=== PATIENT | male | born 1955 | race African-American/Black ===

== ENCOUNTER 2017-01-07 15:59 | Emergency (ER) | payer OTHER ==
[~2017-01-07] VITALS: Ht 172.7 cm; Wt 49.9 kg
[~2017-01-07 15:59] MED LIST: ACCUPRIL40 MG PO; ADVAIR 250/501 DISK IH; ADVAIR HFA120 INHALA IH; ALKA-SELTZER P1 EAC2 PO; AMLODIPINE BESY10 MG PO; ANUSOL HC,ANUCO25 MG PR; APRESOLINE25 MG PO; ASCORBIC ACID100 MG PO; AZO95 MG PO; BACTRIM,SEPT1 TABLE1 PO; BACTRIM,SEPT1 TABLET PO; CIPRO500 MG PO; CIPROFLOXACIN250 MG PO; CIPROFLOXACIN500 M1 PO; CLONIDINE HCL0.1 MG PO; COLACE100 MG PO; COMPAZINE10 MG PO; CYANOCOBALAM1000 MCG PO; Colace PO; DETROL LA4 MG PO; DIGOXIN250 MCG PO; DITROPAN5 MG PO; DOCUSATE SODIU100 MG PO; DOXYCYCLINE HY100 M3 PO; ENDOCET 5-3251 EACH PO; ESCITALOPRAM OX10 MG PO; FAMOTIDINE20 MG PO; FEOSOL325 MG PO; FLEXERIL10 MG PO; FLOMAX0.4 MG PO; FOLIC ACID1 MG PO; KEFLEX500 MG PO; LEVAQUIN250 MG PO; LEVAQUIN750 MG PO; LEVOFLOXACIN750 MG PO; LEVOTHYROXINE100 MCG PO; LEVOTHYROXINE125 MCG PO; LOMOTIL TABLET1 EACH PO; LOPRESSOR50 MG PO; LORTAB 5-325 M1 EACH PO; MEN'S MULTI-VI1 EACH PO; MULTI-VITAMIN1 EAC4 PO; MYLICON,MYLANTA80 MG PO; NAPROSYN500 MG PO; NORCO 5/3251 TABLET PO; NORVASC10 MG PO; PERCOCET 10/1 TABLET PO; PERCOCET 5/31 TABLET PO; POLYETHYLENE GL17 GM PO; PREDNISONE10 MG PO; PREDNISONE50 MG PO; PYRIDIUM100 MG PO; QUINAPRIL HCL40 MG PO; REMERON15 M2 PO; SENOKOT S,PE1 TABLET PO; SYNTHROID200 MCG PO; TAMSULOSIN HCL0.4 MG PO; TOLTERODINE TART4 MG PO; TYLENOL REGULA325 MG PO; VANCOMYCIN1 GM/250 M IV; VENTOLIN HFA18 GM IH; VITAMIN B12 100MCG PO; ZESTRIL40 MG PO; ZITHROMAX250 MG PO; ZOFRAN4 MG PO
[2017-01-07 16:29] LABS: EOSINOPHIL (%) 2.6 % (0-5); EOSINOPHIL COUNT 0.1 K/uL (0-0.3); HEMATOCRIT 33.3 % (38.0-50.0); IMMATURE GRANULOCYTE (%) 0.3 % (0.0-0.7); INSTRUMENT ABS NEUTROPHIL CT 1.9 K/uL; LYMPHOCYTE COUNT 1.1 K/uL (1.0-2.8); MCH 31.7 PG (29.0-34.0); MCHC 31.8 G/DL (30.0-36.0); MCV 99.7 FL (86-99); MEAN PLAT.VOLUME 9.1 uM^3 (9.0-12.4); MONOCYTE (%) 12.5 % (3-12); MONOCYTE COUNT 0.4 K/uL (0-0.8); NEUTROPHIL (%) 53.9 % (45-76); NEUTROPHIL COUNT 1.9 K/uL (1.8-6.4); PLATELET COUNT 193 K/uL (156-360); RBC DIS.WIDTH-CV 14.8 % (11.8-14.6); RBC DIS.WIDTH-SD 53.7 % (39-53); RED BLOOD COUNT 3.34 M/uL (4.00-5.50); WHITE BLOOD COUNT 3.5 K/uL (4.1-10.2)
[2017-01-07 16:43] LABS: CHLORIDE 106 mEq/L (99-109); POTASSIUM 4.4 mEq/L (3.7-5.4); SODIUM 140 mEq/L (136-147)
[2017-01-07 16:45] LABS: GLUCOSE 107 mg/dL (70-99)
[2017-01-07 16:47] LABS: ANION GAP 10 MEQ/L (2-14); TOTAL BILIRUBIN 0.4 mg/dL (0.0-1.0)
[2017-01-07 16:49] LABS: ALKALINE PHOSPHATASE 85 IU/L (3-129); GFR ESTIMATE (CALCULATED) > 59 mL/min/
[2017-01-07 16:50] LABS: UREA NITROGEN (BUN) 21 mg/dL (9-23)
[2017-01-07 16:52] LABS: LIPASE 19 U/L (1.0-51.0)
[2017-01-07 17:23] LABS: COLOR RED ((YELLOW)); GLUCOSE (STRIP) NEGATIVE; LEUKOCYTES LARGE; NITRITE POSITIVE; PH, URINE 8.5 (5-8); PROTEIN (STRIP) 100
[2017-01-07 17:24] LABS: ADD MIUA? YES; BILIRUBIN SMALL; BLOOD LARGE; KETONES NEGATIVE; UROBILINOGEN 0.2 MG/DL (0.2-1.0)
[2017-01-07 17:36] LABS: BACTERIA 4+ /HPF; EPITHELIAL CELLS NONE SEEN /HPF; MUCUS NONE SEEN /LPF; RED BLOOD CELLS TNTC /HPF (0-5); UCUL ADDED? YES; WHITE BLOOD CELLS TNTC /HPF (0-5)
[2017-01-07] MEDS ORDERED: TRAMADOL HCL50 MG PO (20:12)
[2017-01-07] MEDS ORDERED: KEFLEX500 MG PO (20:12)
[2017-01-07 21:26] VITALS: BP 152/76
== END 2017-01-07 21:27 | disposition home or self-care (01) ==
LOC: EME 15:59
PROVIDERS: Emergency Medicine
DX: N39.0 Urinary tract infection, site not specified (principal); N32.0 Bladder-neck obstruction; I10 Essential (primary) hypertension; N21.0 Calculus in bladder; N13.30 Unspecified hydronephrosis; R00.0 Tachycardia, unspecified; J45.909 Unspecified asthma, uncomplicated; F17.200 Nicotine dependence, unspecified, uncomplicated
CPT/HCPCS: 74176; 80053; 81003; 83605; 83690; 85025; 87086 GA; 99281; 99284; J0696; J7030; J7040; J7050

== ENCOUNTER → 2017-01-08 | Outpatient (CLI) | payer OTHER ==
[~2017-01-08] VITALS: Ht 172.7 cm; Wt 49.9 kg
[~2017-01-08] MED LIST changes: +TRAMADOL HCL50 MG PO
[2017-01-08 15:53] VITALS: BP 115/60
== END | disposition home or self-care (01) ==
LOC: IVINF 15:00
DX: T83.511A Infection and inflammatory reaction due to indwelling urethral catheter, initial encounter (principal)
CPT/HCPCS: 96365; J0696; J7050

== ENCOUNTER → 2017-02-24 | Day surgery (SDC) | payer OTHER ==
[~2017-02-24] VITALS: Ht 175.3 cm; Wt 47.2 kg
[~2017-02-24] MED LIST changes: +DULERA 100 MCG/13 GM IH; +FIRMAGON80 MG SC; +LEVOTHYROXINE200 MC1 PO; +LISINOPRIL40 MG PO; +LUPRON DEPOT45 MG IM; +MIRTAZAPINE15 MG PO; +VITAMIN C500 M1 PO
[2017-02-24 09:39] LABS: METH RESISTANT S AUREUS PCR ND (NEGATIVE)
== END | disposition home or self-care (01) ==
LOC: SDC
PROVIDERS: Urology
PROC: 0TJ Urinary System, Inspection (ICD-10-PCS; principal; 2017-02-24)
DX: N21.0 Calculus in bladder (principal); Z53.29 Procedure and treatment not carried out because of patient's decision for other reasons; Z85.46 Personal history of malignant neoplasm of prostate; N40.0 Benign prostatic hyperplasia without lower urinary tract symptoms
CPT/HCPCS: 87086; 87641; 93005; J0690; J1100; J1580; J2250; J2405; J3010

== ENCOUNTER 2017-05-29 06:33 | Emergency (ER) | payer OTHER ==
[~2017-05-29] VITALS: Ht 172.7 cm; Wt 48.3 kg
[2017-05-29 07:15] LABS: HEMATOCRIT 32.7 % (38.0-50.0); MCH 33.1 PG (29.0-34.0); MCV 100.3 FL (86-99); MEAN PLAT.VOLUME 9.8 uM^3 (9.0-12.4); PLATELET COUNT 129 K/uL (156-360); RBC DIS.WIDTH-CV 14.7 % (11.8-14.6); RBC DIS.WIDTH-SD 54.5 % (39-53); RED BLOOD COUNT 3.26 M/uL (4.00-5.50); WHITE BLOOD COUNT 3.2 K/uL (4.1-10.2)
[2017-05-29 07:45] LABS: ALKALINE PHOSPHATASE 68 IU/L (3-129); ANION GAP 9 MEQ/L (2-14); CHLORIDE 110 MEQ/L (99-109); GFR ESTIMATE (CALCULATED) > 59 mL/min/; GLUCOSE 120 mg/dL (70-99); POTASSIUM 3.5 MEQ/L (3.7-5.4); SAMPLE HEMOLYSIS CHECK 0; SAMPLE ICTERIC CHECK 0; SAMPLE LIPEMIA CHECK 0; SODIUM 141 MEQ/L (136-147); TOTAL BILIRUBIN 0.6 MG/DL (0.0-1.0); UREA NITROGEN (BUN) 25 mg/dL (9-23)
[2017-05-29 11:25] LABS: ADD MIUA? YES; BILIRUBIN MODERATE; BLOOD LARGE; COLOR RED ((YELLOW)); GLUCOSE (STRIP) NEGATIVE; KETONES NEGATIVE; LEUKOCYTES MODERATE; NITRITE NEGATIVE; PH, URINE 6.5 (5-8); PROTEIN (STRIP) 300; UROBILINOGEN 0.2 MG/DL (0.2-1.0)
[2017-05-29 11:27] LABS: UCUL ADDED? YES
[2017-05-29 11:32] LABS: ICTOTEST NEGATIVE
[2017-05-29] MEDS ORDERED: LORTAB 5-325 M1 EACH PO (11:53)
[2017-05-29] MEDS ORDERED: KEFLEX500 MG PO (11:53)
[2017-05-29 12:39] VITALS: BP 143/102
== END 2017-05-29 12:41 | disposition home or self-care (01) ==
LOC: EME 06:33
PROVIDERS: Nurse Practitioner Family
DX: N21.0 Calculus in bladder (principal); N39.0 Urinary tract infection, site not specified; I10 Essential (primary) hypertension; J45.909 Unspecified asthma, uncomplicated; F32.9 Major depressive disorder, single episode, unspecified; Z85.46 Personal history of malignant neoplasm of prostate; Z85.118 Personal history of other malignant neoplasm of bronchus and lung; Z90.2 Acquired absence of lung [part of]; Z92.3 Personal history of irradiation; Z87.891 Personal history of nicotine dependence
CPT/HCPCS: 74020; 80053; 81003; 85027; 87086 GA; 99281; 99285; J2270; J7030

== ENCOUNTER 2017-05-30 22:23 | Inpatient (IN) | payer OTHER ==
[~2017-05-30] VITALS: Ht 172.7 cm; Wt 49.1 kg
[2017-05-30 23:44] LABS: CHLORIDE 110 mEq/L (99-109); POTASSIUM 3.3 mEq/L (3.7-5.4); SODIUM 138 mEq/L (136-147)
[2017-05-30 23:46] LABS: GLUCOSE 110 mg/dL (70-99)
[2017-05-30 23:48] LABS: ANION GAP 7 MEQ/L (2-14); TOTAL BILIRUBIN 0.4 mg/dL (0.0-1.0)
[2017-05-30 23:50] LABS: ALKALINE PHOSPHATASE 54 IU/L (3-129); GFR ESTIMATE (CALCULATED) > 59 mL/min/; HEMATOCRIT 25.7 % (38.0-50.0); MCH 33.6 PG (29.0-34.0); MCHC 33.5 G/DL (30.0-36.0); MCV 100.4 FL (86-99); MEAN PLAT.VOLUME 9.8 uM^3 (9.0-12.4); PLATELET COUNT 103 K/uL (156-360); RBC DIS.WIDTH-CV 14.5 % (11.8-14.6); RBC DIS.WIDTH-SD 53.2 % (39-53); RED BLOOD COUNT 2.56 M/uL (4.00-5.50)
[2017-05-30 23:51] LABS: UREA NITROGEN (BUN) 14 mg/dL (9-23)
[2017-05-31 00:44] LABS: ADD MIUA? YES; BILIRUBIN NEGATIVE; BLOOD MODERATE; COLOR AMBER ((YELLOW)); GLUCOSE (STRIP) NEGATIVE; KETONES NEGATIVE; LEUKOCYTES SMALL; NITRITE NEGATIVE; PROTEIN (STRIP) 100; UROBILINOGEN 0.2 MG/DL (0.2-1.0)
[2017-05-31 00:45] LABS: RED BLOOD CELLS TNTC /HPF (0-5)
[2017-05-31 00:46] LABS: UCUL ADDED? YES
[2017-05-31 04:10] VITALS: BP 183/124
[2017-05-31 05:35] LABS: HEMATOCRIT 24.5 % (38.0-50.0); MCH 34.6 PG (29.0-34.0); MCHC 33.9 G/DL (30.0-36.0); MCV 102.1 FL (86-99); MEAN PLAT.VOLUME 9.6 uM^3 (9.0-12.4); PLATELET COUNT 92 K/uL (156-360); RBC DIS.WIDTH-CV 14.6 % (11.8-14.6); RBC DIS.WIDTH-SD 55.1 % (39-53); WHITE BLOOD COUNT 2.7 K/uL (4.1-10.2)
[2017-05-31 06:36] LABS: ALKALINE PHOSPHATASE 49 IU/L (3-129); ANION GAP 7 MEQ/L (2-14); CHLORIDE 111 MEQ/L (99-109); GFR ESTIMATE (CALCULATED) > 59 mL/min/; GLUCOSE 86 mg/dL (70-99); POTASSIUM 3.4 MEQ/L (3.7-5.4); SAMPLE HEMOLYSIS CHECK 0; SAMPLE ICTERIC CHECK 0; SAMPLE LIPEMIA CHECK 0; SODIUM 138 MEQ/L (136-147); TOTAL BILIRUBIN 0.5 MG/DL (0.0-1.0); UREA NITROGEN (BUN) 11 mg/dL (9-23)
[2017-05-31 08:08] VITALS: BP 164/117
[2017-05-31 11:40] VITALS: BP 155/100
[2017-05-31 15:36] VITALS: BP 128/88
[2017-05-31] MEDS ORDERED: MEGACE 40 MG40 MG/ML PO (18:01)
[2017-05-31] MEDS ORDERED: MULTIVITAMIN1 EAC2 PO (18:02)
[2017-05-31] MEDS ORDERED: FLOMAX0.4 MG PO (18:02)
[2017-05-31] MEDS ORDERED: TRAMADOL HCL50 MG PO (18:03)
[2017-05-31] MEDS ORDERED: REMERON15 M2 PO (18:03)
[2017-05-31] MEDS ORDERED: LEVO-T175 MCG PO (18:04)
[2017-05-31] MEDS ORDERED: TYLENOL REGULA325 MG PO (18:04)
[2017-05-31] MEDS ORDERED: ASCORBIC ACID500 M3 PO (18:05)
[2017-05-31] MEDS ORDERED: KEFLEX500 MG PO (18:05)
[2017-05-31] MEDS ORDERED: ENDOCET 5-3251 EACH PO (18:06)
[2017-05-31] MEDS ORDERED: NORCO 5/3251 TABLET PO (18:06)
[2017-05-31 19:59] VITALS: BP 130/99
[2017-05-31 23:34] VITALS: BP 145/102
[2017-06-01 03:31] VITALS: BP 126/89
[2017-06-01 06:12] LABS: EOSINOPHIL (%) 4.3 % (0-5); EOSINOPHIL COUNT 0.1 K/uL (0-0.3); HEMATOCRIT 24.1 % (38.0-50.0); IMMATURE GRANULOCYTE (%) 0.6 % (0.0-0.7); INSTRUMENT ABS NEUTROPHIL CT 1.7 K/uL; LYMPHOCYTE COUNT 0.9 K/uL (1.0-2.8); MCH 35.3 PG (29.0-34.0); MCHC 35.3 G/DL (30.0-36.0); MEAN PLAT.VOLUME 10.2 uM^3 (9.0-12.4); MONOCYTE (%) 16.7 % (3-12); MONOCYTE COUNT 0.6 K/uL (0-0.8); NEUTROPHIL COUNT 1.7 K/uL (1.8-6.4); PLATELET COUNT 110 K/uL (156-360); RBC DIS.WIDTH-CV 14.6 % (11.8-14.6); RBC DIS.WIDTH-SD 53.5 % (39-53); RED BLOOD COUNT 2.41 M/uL (4.00-5.50); WHITE BLOOD COUNT 3.3 K/uL (4.1-10.2)
[2017-06-01 07:29] LABS: ANION GAP 9 MEQ/L (2-14); CHLORIDE 111 MEQ/L (99-109); GFR ESTIMATE (CALCULATED) > 59 mL/min/; POTASSIUM 3.6 MEQ/L (3.7-5.4); SAMPLE HEMOLYSIS CHECK 0; SAMPLE ICTERIC CHECK 0; SAMPLE LIPEMIA CHECK 0; SODIUM 139 MEQ/L (136-147); UREA NITROGEN (BUN) 9 mg/dL (9-23)
[2017-06-01 07:32] LABS: GLUCOSE 114 mg/dL (70-99)
[2017-06-01 07:50] VITALS: BP 141/98
[2017-06-01 11:08] VITALS: BP 133/89
[2017-06-01 15:26] VITALS: BP 135/92
[2017-06-01 20:07] VITALS: BP 150/110
[2017-06-02 00:16] VITALS: BP 145/82
[2017-06-02 07:36] LABS: HEMATOCRIT 22.4 % (38.0-50.0); MCH 34.8 PG (29.0-34.0); MCHC 34.4 G/DL (30.0-36.0); MCV 101.4 FL (86-99); PLATELET COUNT 97 K/uL (156-360); RBC DIS.WIDTH-CV 14.8 % (11.8-14.6); RBC DIS.WIDTH-SD 54.8 % (39-53); RED BLOOD COUNT 2.21 M/uL (4.00-5.50); WHITE BLOOD COUNT 2.9 K/uL (4.1-10.2)
[2017-06-02 08:10] LABS: ANION GAP 5 MEQ/L (2-14); CHLORIDE 110 MEQ/L (99-109); GFR ESTIMATE (CALCULATED) > 59 mL/min/; POTASSIUM 3.6 MEQ/L (3.7-5.4); SAMPLE HEMOLYSIS CHECK 0; SAMPLE ICTERIC CHECK 0; SAMPLE LIPEMIA CHECK 0; SODIUM 138 MEQ/L (136-147); UREA NITROGEN (BUN) 9 mg/dL (9-23)
[2017-06-02 08:12] LABS: GLUCOSE 84 mg/dL (70-99)
[2017-06-02 11:08] VITALS: BP 174/126
[2017-06-02 12:01] VITALS: BP 147/111
[2017-06-02 12:29] VITALS: BP 166/112
[2017-06-02 13:47] LABS: HEMATOCRIT 25.3 % (38.0-50.0); MCV 101.6 FL (86-99)
[2017-06-02 15:15] VITALS: BP 139/97
[2017-06-02 19:25] VITALS: BP 143/108
[2017-06-03 00:03] VITALS: BP 130/101
[2017-06-03 08:00] VITALS: BP 141/112
[2017-06-03 12:00] VITALS: BP 140/98
[2017-06-03 13:10] LABS: HEMATOCRIT 23.2 % (38.0-50.0); MCH 35.1 PG (29.0-34.0); MCHC 34.5 G/DL (30.0-36.0); MCV 101.8 FL (86-99); MEAN PLAT.VOLUME 10.5 uM^3 (9.0-12.4); PLATELET COUNT 96 K/uL (156-360); RBC DIS.WIDTH-CV 15.3 % (11.8-14.6); RED BLOOD COUNT 2.28 M/uL (4.00-5.50); WHITE BLOOD COUNT 2.6 K/uL (4.1-10.2)
[2017-06-03 13:30] LABS: ANION GAP 7 MEQ/L (2-14); CHLORIDE 108 MEQ/L (99-109); POTASSIUM 3.9 MEQ/L (3.7-5.4); SAMPLE HEMOLYSIS CHECK 0; SAMPLE ICTERIC CHECK 0; SAMPLE LIPEMIA CHECK 0; SODIUM 138 MEQ/L (136-147)
[2017-06-03 13:36] LABS: GFR ESTIMATE (CALCULATED) > 59 mL/min/; GLUCOSE 88 mg/dL (70-99); UREA NITROGEN (BUN) 8 mg/dL (9-23)
[2017-06-03 15:00] VITALS: BP 133/100
[2017-06-03] MEDS ORDERED: MORPHINE SULFAT15 MG PO (15:17)
[2017-06-03 19:47] VITALS: BP 139/89
[2017-06-03 23:24] VITALS: BP 143/84
[2017-06-04 03:31] VITALS: BP 148/87
[2017-06-04 08:21] VITALS: BP 140/88
[2017-06-04] MEDS ORDERED: LEVOFLOXACIN750 MG PO (09:04)
[2017-06-04] MEDS ORDERED: GABAPENTIN100 MG PO (09:08)
[2017-06-04] MEDS ORDERED: LISINOPRIL20 MG PO (09:08)
[2017-06-04 12:06] VITALS: BP 138/75
[2017-06-04 15:05] VITALS: BP 149/92
== END 2017-06-04 17:03 | disposition home or self-care (01) | DRG 699 ==
LOC: EME → EDBD 22:23 → 5SOUTH 05-31 02:11 → EDOF 05-31 02:11 → ENRESERV 05-31 02:24 → 5SOUTH 05-31 04:04
PROVIDERS: Emergency Medicine; Internal Medicine; Nurse Practitioner Adult Health
DX: N32.89 Other specified disorders of bladder (principal); N21.0 Calculus in bladder; N32.0 Bladder-neck obstruction; D61.818 Other pancytopenia; K56.7 Ileus, unspecified; R31.9 Hematuria, unspecified; N13.30 Unspecified hydronephrosis; N39.0 Urinary tract infection, site not specified; C61 Malignant neoplasm of prostate; E87.6 Hypokalemia; N40.0 Benign prostatic hyperplasia without lower urinary tract symptoms; J44.9 Chronic obstructive pulmonary disease, unspecified; K59.00 Constipation, unspecified; R10.2 Pelvic and perineal pain; N20.9 Urinary calculus, unspecified; E05.90 Thyrotoxicosis, unspecified without thyrotoxic crisis or storm; N18.9 Chronic kidney disease, unspecified; R26.2 Difficulty in walking, not elsewhere classified; I12.9 Hypertensive chronic kidney disease with stage 1 through stage 4 chronic kidney disease, or unspecified chronic kidney disease; G89.29 Other chronic pain; E03.9 Hypothyroidism, unspecified; Z68.1 Body mass index [BMI] 19.9 or less, adult; Z79.899 Other long term (current) drug therapy; Z85.118 Personal history of other malignant neoplasm of bronchus and lung; Z90.2 Acquired absence of lung [part of]; Z91.19 Patient's noncompliance with other medical treatment and regimen; Z92.3 Personal history of irradiation; Z90.79 Acquired absence of other genital organ(s)
CPT/HCPCS: 74000; 74020; 74176; 76770; 80048; 80053; 81003; 85014; 85018; 85025; 85027; 86900; 86901; 87040; 87086; 87086 GA; 87493; 93005; 94640; 94640 76; 99202; 99281; 99285; J1650; J1956; J2270; J2405; J3010; J3480; J7030; S0028; S0030

== ENCOUNTER 2017-06-11 05:06 | Inpatient (IN) | payer OTHER ==
[~2017-06-11] VITALS: Ht 172.7 cm; Wt 50.8 kg
[~2017-06-11 05:06] MED LIST changes: +ASCORBIC ACID500 M3 PO; +GABAPENTIN100 MG PO; +LEVO-T175 MCG PO; +LISINOPRIL20 MG PO; +MEGACE 40 MG40 MG/ML PO; +MORPHINE SULFAT15 MG PO; +MULTIVITAMIN1 EAC2 PO
[2017-06-11 06:44] VITALS: BP 154/108
[2017-06-11 07:21] LABS: METH RESISTANT S AUREUS PCR POSITIVE (NEGATIVE)
[2017-06-11 07:22] LABS: PROBE CHECK PASS
[2017-06-11] MEDS ORDERED: MORPHINE SULFAT15 MG PO (12:28)
[2017-06-11] MEDS ORDERED: DOCUSATE SODIU100 MG PO (12:28)
[2017-06-11] MEDS ORDERED: BACTRIM,SEPT1 TABLET PO (12:28)
[2017-06-11 13:13] LABS: MCH 35.5 PG (29.0-34.0); MCHC 33.6 G/DL (30.0-36.0); MCV 105.7 FL (86-99); MEAN PLAT.VOLUME 10.8 uM^3 (9.0-12.4); PLATELET COUNT 106 K/uL (156-360); RBC DIS.WIDTH-CV 16.8 % (11.8-14.6); RBC DIS.WIDTH-SD 63.7 % (39-53); RED BLOOD COUNT 2.65 M/uL (4.00-5.50); WHITE BLOOD COUNT 2.1 K/uL (4.1-10.2)
[2017-06-11 13:35] LABS: ANION GAP 9 MEQ/L (2-14); CHLORIDE 105 MEQ/L (99-109); POTASSIUM 3.7 MEQ/L (3.7-5.4); SAMPLE HEMOLYSIS CHECK 0; SAMPLE ICTERIC CHECK 0; SAMPLE LIPEMIA CHECK 0; SODIUM 140 MEQ/L (136-147)
[2017-06-11 13:41] LABS: GFR ESTIMATE (CALCULATED) > 59 mL/min/; GLUCOSE 85 mg/dL (70-99); UREA NITROGEN (BUN) 11 mg/dL (9-23)
[2017-06-11 14:46] VITALS: BP 173/82
[2017-06-11 15:30] VITALS: BP 174/84
[2017-06-11 17:31] VITALS: BP 188/110
[2017-06-11 20:25] VITALS: BP 130/75
[2017-06-12 00:48] VITALS: BP 140/75
[2017-06-12 04:07] VITALS: BP 157/93
[2017-06-12 08:00] VITALS: BP 148/100
[2017-06-12 11:09] LABS: HEMATOCRIT 27.2 % (38.0-50.0); MCHC 34.2 G/DL (30.0-36.0); MCV 102.3 FL (86-99); MEAN PLAT.VOLUME 10.6 uM^3 (9.0-12.4); PLATELET COUNT 96 K/uL (156-360); RBC DIS.WIDTH-SD 63.1 % (39-53); RED BLOOD COUNT 2.66 M/uL (4.00-5.50); WHITE BLOOD COUNT 2.3 K/uL (4.1-10.2)
[2017-06-12 12:04] LABS: ANION GAP 10 MEQ/L (2-14); CHLORIDE 99 MEQ/L (99-109); POTASSIUM 3.6 MEQ/L (3.7-5.4); SAMPLE HEMOLYSIS CHECK 0; SAMPLE ICTERIC CHECK 0; SAMPLE LIPEMIA CHECK 0; SODIUM 135 MEQ/L (136-147)
[2017-06-12 12:11] LABS: GFR ESTIMATE (CALCULATED) > 59 mL/min/; GLUCOSE 114 mg/dL (70-99); UREA NITROGEN (BUN) 12 mg/dL (9-23)
[2017-06-12 12:28] VITALS: BP 142/90
[2017-06-12 15:30] VITALS: BP 140/92
[2017-06-12 19:56] VITALS: BP 130/86
[2017-06-13] VITALS (7 sets, daily range): BP systolic 100–138; BP diastolic 62–98
[2017-06-13 06:56] LABS: HEMATOCRIT 23.8 % (38.0-50.0); MCH 34.9 PG (29.0-34.0); MCHC 33.6 G/DL (30.0-36.0); MCV 103.9 FL (86-99); MEAN PLAT.VOLUME 10.5 uM^3 (9.0-12.4); PLATELET COUNT 73 K/uL (156-360); RBC DIS.WIDTH-CV 16.7 % (11.8-14.6); RBC DIS.WIDTH-SD 63.8 % (39-53); RED BLOOD COUNT 2.29 M/uL (4.00-5.50); WHITE BLOOD COUNT 2.4 K/uL (4.1-10.2)
[2017-06-13 07:16] LABS: ANION GAP 6 MEQ/L (2-14); CHLORIDE 99 MEQ/L (99-109); GFR ESTIMATE (CALCULATED) > 59 mL/min/; GLUCOSE 103 mg/dL (70-99); POTASSIUM 3.4 MEQ/L (3.7-5.4); SAMPLE HEMOLYSIS CHECK 0; SAMPLE ICTERIC CHECK 0; SAMPLE LIPEMIA CHECK 0; SODIUM 134 MEQ/L (136-147); UREA NITROGEN (BUN) 16 mg/dL (9-23)
[2017-06-13 14:42] LABS: MCV 104.4 FL (86-99)
[2017-06-13 14:48] LABS: PROTHROMBIN TIME 11.4 SEC (10.2-12.9)
[2017-06-13 15:02] LABS: TOTAL BILIRUBIN 0.3 MG/DL (0.0-1.0)
[2017-06-13 15:07] LABS: LACTATE DEHYDROGENASE 176 IU/L (20-246)
[2017-06-13 17:25] LABS: ADD MIUA? YES; BILIRUBIN NEGATIVE; BLOOD LARGE; GLUCOSE (STRIP) NEGATIVE; KETONES NEGATIVE; LEUKOCYTES MODERATE; NITRITE POSITIVE; PROTEIN (STRIP) >=500; SPECIFIC GRAVITY 1.022 (1.000-1.030)
[2017-06-13 17:29] LABS: COLOR DK YELLOW ((YELLOW))
[2017-06-13 17:32] LABS: BACTERIA 1+ /HPF; CASTS NONE SEEN /LPF; CRYSTALS NONE SEEN; EPITHELIAL CELLS NONE SEEN /HPF; MUCUS NONE SEEN /LPF; RED BLOOD CELLS TNTC /HPF (0-5); UCUL ADDED? YES; WHITE BLOOD CELLS 20-30 /HPF (0-5)
[2017-06-14 02:44] LABS: CHLORIDE 98 mEq/L (99-109); SODIUM 131 mEq/L (136-147)
[2017-06-14 02:46] LABS: GLUCOSE 114 mg/dL (70-99)
[2017-06-14 02:47] LABS: ANION GAP 5 MEQ/L (2-14)
[2017-06-14 02:49] LABS: GFR ESTIMATE (CALCULATED) > 59 mL/min/
[2017-06-14 02:50] LABS: UREA NITROGEN (BUN) 16 mg/dL (9-23)
[2017-06-14 05:07] LABS: HEMATOCRIT 25.5 % (38.0-50.0); MCHC 33.3 G/DL (30.0-36.0); MEAN PLAT.VOLUME 11.8 uM^3 (9.0-12.4); PLATELET COUNT 86 K/uL (156-360); RBC DIS.WIDTH-CV 15.7 % (11.8-14.6); RBC DIS.WIDTH-SD 59.8 % (39-53)
[2017-06-14 05:21] LABS: CHLORIDE 98 mEq/L (99-109); POTASSIUM 4.1 mEq/L (3.7-5.4); SODIUM 131 mEq/L (136-147)
[2017-06-14 05:23] LABS: GLUCOSE 114 mg/dL (70-99)
[2017-06-14 05:24] LABS: ANION GAP 6 MEQ/L (2-14)
[2017-06-14 05:25] LABS: TOTAL BILIRUBIN 0.2 mg/dL (0.0-1.0)
[2017-06-14 05:26] LABS: ALKALINE PHOSPHATASE 44 IU/L (3-129)
[2017-06-14 05:27] LABS: GFR ESTIMATE (CALCULATED) > 59 mL/min/
[2017-06-14 05:28] LABS: UREA NITROGEN (BUN) 16 mg/dL (9-23)
[2017-06-14 07:40] LABS: IRON 24 MCG/DL (35-150)
[2017-06-14 07:44] VITALS: BP 146/98
[2017-06-14 08:19] LABS: FERRITIN 705 NG/ML (22-322)
[2017-06-14 16:09] VITALS: BP 148/100
[2017-06-14 23:22] VITALS: BP 130/95
[2017-06-15 06:42] LABS: EOSINOPHIL (%) 3.4 % (0-5); EOSINOPHIL COUNT 0.1 K/uL (0-0.3); HEMATOCRIT 24.4 % (38.0-50.0); IMMATURE GRANULOCYTE (%) 0.6 % (0.0-0.7); INSTRUMENT ABS NEUTROPHIL CT 0.7 K/uL; LYMPHOCYTE COUNT 0.6 K/uL (1.0-2.8); MCHC 32.8 G/DL (30.0-36.0); MCV 103.8 FL (86-99); MEAN PLAT.VOLUME 10.3 uM^3 (9.0-12.4); MONOCYTE (%) 22.7 % (3-12); MONOCYTE COUNT 0.4 K/uL (0-0.8); NEUTROPHIL (%) 37.5 % (45-76); NEUTROPHIL COUNT 0.7 K/uL (1.8-6.4); PLATELET COUNT 86 K/uL (156-360); RBC DIS.WIDTH-CV 15.9 % (11.8-14.6); RBC DIS.WIDTH-SD 60.8 % (39-53); RED BLOOD COUNT 2.35 M/uL (4.00-5.50)
[2017-06-15 06:49] LABS: ANION GAP 5 MEQ/L (2-14); CHLORIDE 102 MEQ/L (99-109); GFR ESTIMATE (CALCULATED) > 59 mL/min/; GLUCOSE 99 mg/dL (70-99); POTASSIUM 4.6 MEQ/L (3.7-5.4); SAMPLE HEMOLYSIS CHECK 0; SAMPLE ICTERIC CHECK 0; SAMPLE LIPEMIA CHECK 0; SODIUM 135 MEQ/L (136-147); UREA NITROGEN (BUN) 11 mg/dL (9-23)
[2017-06-15 07:09] LABS: WHITE BLOOD COUNT 1.8 K/uL (4.1-10.2)
[2017-06-15 07:29] VITALS: BP 140/61
[2017-06-15 07:45] VITALS: BP 98/68
[2017-06-15 15:55] VITALS: BP 106/68
[2017-06-15 23:11] VITALS: BP 109/72
[2017-06-16 04:17] LABS: HEMATOCRIT 25.6 % (38.0-50.0); MCH 33.2 PG (29.0-34.0); MCV 103.6 FL (86-99); PLATELET COUNT 103 K/uL (156-360); RBC DIS.WIDTH-CV 15.6 % (11.8-14.6); RBC DIS.WIDTH-SD 60.2 % (39-53); RED BLOOD COUNT 2.47 M/uL (4.00-5.50)
[2017-06-16 04:18] LABS: WHITE BLOOD COUNT 1.8 K/uL (4.1-10.2)
[2017-06-16 04:25] LABS: CHLORIDE 106 mEq/L (99-109); POTASSIUM 5.1 mEq/L (3.7-5.4); SODIUM 138 mEq/L (136-147)
[2017-06-16 04:27] LABS: GLUCOSE 88 mg/dL (70-99)
[2017-06-16 04:28] LABS: ANION GAP 6 MEQ/L (2-14)
[2017-06-16 04:30] LABS: GFR ESTIMATE (CALCULATED) > 59 mL/min/
[2017-06-16 04:31] LABS: UREA NITROGEN (BUN) 13 mg/dL (9-23)
[2017-06-16 07:50] VITALS: BP 104/62
[2017-06-16 15:20] VITALS: BP 116/78
[2017-06-16 23:34] VITALS: BP 127/89
[2017-06-17 06:44] LABS: EOSINOPHIL (%) 8.3 % (0-5); EOSINOPHIL COUNT 0.2 K/uL (0-0.3); HEMATOCRIT 25.1 % (38.0-50.0); IMMATURE GRANULOCYTE (%) 0.5 % (0.0-0.7); INSTRUMENT ABS NEUTROPHIL CT 0.9 K/uL; LYMPHOCYTE COUNT 0.6 K/uL (1.0-2.8); MCH 35.1 PG (29.0-34.0); MCHC 33.9 G/DL (30.0-36.0); MCV 103.7 FL (86-99); MEAN PLAT.VOLUME 10.7 uM^3 (9.0-12.4); MONOCYTE (%) 16.6 % (3-12); MONOCYTE COUNT 0.3 K/uL (0-0.8); NEUTROPHIL (%) 45.8 % (45-76); NEUTROPHIL COUNT 0.9 K/uL (1.8-6.4); PLATELET COUNT 92 K/uL (156-360); RBC DIS.WIDTH-CV 15.2 % (11.8-14.6); RBC DIS.WIDTH-SD 57.4 % (39-53); RED BLOOD COUNT 2.42 M/uL (4.00-5.50); WHITE BLOOD COUNT 2.1 K/uL (4.1-10.2)
[2017-06-17 07:10] LABS: ANION GAP 7 MEQ/L (2-14); CHLORIDE 104 MEQ/L (99-109); GFR ESTIMATE (CALCULATED) > 59 mL/min/; GLUCOSE 84 mg/dL (70-99); POTASSIUM 4.4 MEQ/L (3.7-5.4); SAMPLE HEMOLYSIS CHECK 0; SAMPLE ICTERIC CHECK 0; SAMPLE LIPEMIA CHECK 0; SODIUM 140 MEQ/L (136-147); UREA NITROGEN (BUN) 12 mg/dL (9-23)
[2017-06-17 07:30] VITALS: BP 164/111
[2017-06-17] MEDS ORDERED: LEVOFLOXACIN750 MG PO (08:41)
[2017-06-17 14:45] VITALS: BP 173/114
[2017-06-18 00:12] VITALS: BP 122/93
[2017-06-18 07:36] VITALS: BP 108/82
[2017-06-18 15:52] VITALS: BP 118/80
[2017-06-18] MEDS ORDERED: PERCOCET 5/31 TABLET PO (17:01)
== END 2017-06-19 00:15 | DRG 668 ==
LOC: SDC → 2SOUTH 12:18 → ENRESERV 12:20 → 2EAST 14:26 → ENPENDDIS 06-18 18:15 → 2EAST 06-19 00:15
PROVIDERS: Internal Medicine; Physician Assistant Medical; Student in an Organized Health Care Education/Training Program; Urology
DX: N21.0 Calculus in bladder (principal); C61 Malignant neoplasm of prostate; N30.21 Other chronic cystitis with hematuria; N17.9 Acute kidney failure, unspecified; N13.30 Unspecified hydronephrosis; D53.9 Nutritional anemia, unspecified; N40.0 Benign prostatic hyperplasia without lower urinary tract symptoms; N32.89 Other specified disorders of bladder; J44.9 Chronic obstructive pulmonary disease, unspecified; E03.9 Hypothyroidism, unspecified; D61.810 Antineoplastic chemotherapy induced pancytopenia; G62.9 Polyneuropathy, unspecified; K56.0 Paralytic ileus; R50.81 Fever presenting with conditions classified elsewhere; N50.811 Right testicular pain; N18.2 Chronic kidney disease, stage 2 (mild); I70.90 Unspecified atherosclerosis; I12.9 Hypertensive chronic kidney disease with stage 1 through stage 4 chronic kidney disease, or unspecified chronic kidney disease; A49.02 Methicillin resistant Staphylococcus aureus infection, unspecified site; T45.1X5A Adverse effect of antineoplastic and immunosuppressive drugs, initial encounter; Z68.1 Body mass index [BMI] 19.9 or less, adult; Z92.3 Personal history of irradiation; Z90.79 Acquired absence of other genital organ(s); Z87.891 Personal history of nicotine dependence; Z91.19 Patient's noncompliance with other medical treatment and regimen; Z85.46 Personal history of malignant neoplasm of prostate; Z85.118 Personal history of other malignant neoplasm of bronchus and lung; Z82.49 Family history of ischemic heart disease and other diseases of the circulatory system
CPT/HCPCS: 70450; 71020; 74000; 74176; 76000; 76770; 80048; 80048 91; 80053; 81003; 82247; 82272; 82365 90; 82607; 82728; 82746; 83010 90; 83540; 83605; 83615; 84466; 85014; 85018; 85025; 85027; 85379; 85610; 85730; 87040; 87086; 87641; 93971; 97530 GO; G0378; J0690; J1170; J1580; J1885; J2250; J2405; J2543; J3010; J7030; J7050; J7120

== ENCOUNTER 2017-08-16 12:20 | Inpatient (IN) | payer OTHER ==
[~2017-08-16] VITALS: Ht 172.7 cm; Wt 55.6 kg
[2017-08-16 13:24] LABS: EOSINOPHIL (%) 0.2 % (0-5); HEMATOCRIT 34.8 % (38.0-50.0); IMMATURE GRANULOCYTE (%) 0.4 % (0.0-0.7); INSTRUMENT ABS NEUTROPHIL CT 4.6 K/uL; LYMPHOCYTE COUNT 0.6 K/uL (1.0-2.8); MCH 33.2 PG (29.0-34.0); MCHC 32.5 G/DL (30.0-36.0); MCV 102.4 FL (86-99); MEAN PLAT.VOLUME 10.2 uM^3 (9.0-12.4); MONOCYTE (%) 8.6 % (3-12); MONOCYTE COUNT 0.5 K/uL (0-0.8); NEUTROPHIL (%) 80.2 % (45-76); NEUTROPHIL COUNT 4.6 K/uL (1.8-6.4); PLATELET COUNT 101 K/uL (156-360); RBC DIS.WIDTH-CV 12.9 % (11.8-14.6); RBC DIS.WIDTH-SD 48.9 % (39-53); WHITE BLOOD COUNT 5.7 K/uL (4.1-10.2)
[2017-08-16 13:35] LABS: CHLORIDE 106 mEq/L (99-109); POTASSIUM 4.5 mEq/L (3.7-5.4); SODIUM 141 mEq/L (136-147)
[2017-08-16 13:37] LABS: GLUCOSE 104 mg/dL (70-99)
[2017-08-16 13:38] LABS: ANION GAP 15 MEQ/L (2-14)
[2017-08-16 13:39] LABS: TOTAL BILIRUBIN 0.5 mg/dL (0.0-1.0)
[2017-08-16 13:40] LABS: ALKALINE PHOSPHATASE 98 IU/L (3-129)
[2017-08-16 13:41] LABS: GFR ESTIMATE (CALCULATED) > 59 mL/min/
[2017-08-16 13:42] LABS: UREA NITROGEN (BUN) 18 mg/dL (9-23)
[2017-08-16 14:12] LABS: ADD MIUA? YES; BILIRUBIN NEGATIVE; BLOOD MODERATE; GLUCOSE (STRIP) NEGATIVE; KETONES NEGATIVE; LEUKOCYTES LARGE; NITRITE NEGATIVE; PROTEIN (STRIP) 100; SPECIFIC GRAVITY 1.009 (1.000-1.030); UROBILINOGEN 0.2 MG/DL (0.2-1.0)
[2017-08-16 14:13] LABS: COLOR LT YELLOW ((YELLOW))
[2017-08-16 14:22] LABS: BACTERIA 1+ /HPF; EPITHELIAL CELLS NONE SEEN /HPF; MUCUS TRACE /LPF; RED BLOOD CELLS TNTC /HPF (0-5); UCUL ADDED? YES; WHITE BLOOD CELLS TNTC /HPF (0-5)
[2017-08-16] MEDS ORDERED: BETHANECHOL CHL10 MG PO (15:57)
[2017-08-16] MEDS ORDERED: MIRTAZAPINE15 MG PO (15:58)
[2017-08-16 18:21] VITALS: BP 160/114
[2017-08-16 20:00] VITALS: BP 159/115
[2017-08-17 00:40] VITALS: BP 120/98
[2017-08-17 04:01] VITALS: BP 130/95
[2017-08-17 05:18] LABS: EOSINOPHIL (%) 2.8 % (0-5); EOSINOPHIL COUNT 0.1 K/uL (0-0.3); HEMATOCRIT 32.3 % (38.0-50.0); IMMATURE GRANULOCYTE (%) 0.4 % (0.0-0.7); INSTRUMENT ABS NEUTROPHIL CT 0.8 K/uL; LYMPHOCYTE COUNT 1.3 K/uL (1.0-2.8); MCH 32.8 PG (29.0-34.0); MCHC 31.9 G/DL (30.0-36.0); MCV 102.9 FL (86-99); MEAN PLAT.VOLUME 9.9 uM^3 (9.0-12.4); MONOCYTE (%) 13.5 % (3-12); MONOCYTE COUNT 0.3 K/uL (0-0.8); NEUTROPHIL (%) 32.3 % (45-76); NEUTROPHIL COUNT 0.8 K/uL (1.8-6.4); PLATELET COUNT 109 K/uL (156-360); RBC DIS.WIDTH-CV 13.3 % (11.8-14.6); RBC DIS.WIDTH-SD 50.1 % (39-53); RED BLOOD COUNT 3.14 M/uL (4.00-5.50); WHITE BLOOD COUNT 2.5 K/uL (4.1-10.2)
[2017-08-17 05:47] LABS: ANION GAP 8 MEQ/L (2-14); CHLORIDE 108 MEQ/L (99-109); GFR ESTIMATE (CALCULATED) > 59 mL/min/; GLUCOSE 85 mg/dL (70-99); POTASSIUM 3.6 MEQ/L (3.7-5.4); SAMPLE HEMOLYSIS CHECK 0; SAMPLE ICTERIC CHECK 0; SAMPLE LIPEMIA CHECK 0; SODIUM 143 MEQ/L (136-147); UREA NITROGEN (BUN) 17 mg/dL (9-23)
[2017-08-17 08:26] VITALS: BP 133/80
[2017-08-17 08:49] LABS: METH RESISTANT S AUREUS PCR NEGATIVE (NEGATIVE)
[2017-08-17 09:01] LABS: PROBE CHECK PASS; SPECIMEN PROCESSING CONTROL PASS
[2017-08-17 11:51] VITALS: BP 119/90
[2017-08-17 15:53] VITALS: BP 137/89
[2017-08-17 20:15] VITALS: BP 146/98
[2017-08-18 04:55] LABS: CHLORIDE 107 mEq/L (99-109); POTASSIUM 3.6 mEq/L (3.7-5.4); SODIUM 142 mEq/L (136-147)
[2017-08-18 04:57] LABS: GLUCOSE 89 mg/dL (70-99)
[2017-08-18 04:58] LABS: ANION GAP 10 MEQ/L (2-14)
[2017-08-18 05:01] LABS: GFR ESTIMATE (CALCULATED) > 59 mL/min/; MCH 33.4 PG (29.0-34.0); MCHC 32.9 G/DL (30.0-36.0); MCV 101.6 FL (86-99); MEAN PLAT.VOLUME 10.3 uM^3 (9.0-12.4); PLATELET COUNT 101 K/uL (156-360); RBC DIS.WIDTH-CV 12.6 % (11.8-14.6); RBC DIS.WIDTH-SD 46.3 % (39-53); RED BLOOD COUNT 3.05 M/uL (4.00-5.50)
[2017-08-18 05:02] LABS: UREA NITROGEN (BUN) 21 mg/dL (9-23); WHITE BLOOD COUNT 1.8 K/uL (4.1-10.2)
[2017-08-18 05:09] VITALS: BP 162/114
[2017-08-18 06:00] VITALS: BP 163/106
[2017-08-18 09:35] VITALS: BP 133/96
[2017-08-18] MEDS ORDERED: CEFTIN500 MG PO (11:45)
[2017-08-18 11:50] VITALS: BP 148/94
== END 2017-08-18 14:03 | disposition home or self-care (01) | DRG 689 ==
LOC: EME 12:20 → 4EAST 15:53 → EDOF 15:53 → ENRESERV 15:55 → 4EAST 18:08 → ENPENDDIS 08-18 → 4EAST 08-18 14:03
PROVIDERS: Emergency Medicine; Family Medicine; Hospitalist
DX: N13.6 Pyonephrosis (principal); I16.0 Hypertensive urgency; E87.2 Acidosis; N39.41 Urge incontinence; Z90.2 Acquired absence of lung [part of]; C61 Malignant neoplasm of prostate; Z85.118 Personal history of other malignant neoplasm of bronchus and lung; D61.810 Antineoplastic chemotherapy induced pancytopenia; T45.1X5A Adverse effect of antineoplastic and immunosuppressive drugs, initial encounter; I10 Essential (primary) hypertension; E03.9 Hypothyroidism, unspecified; Z87.891 Personal history of nicotine dependence
CPT/HCPCS: 74176; 80048; 80053; 81003; 83605; 85025; 85027; 87040; 87086 GA; 87641; 99281; 99285; J0360; J0696; J1650; J7030; J7050

== ENCOUNTER 2018-01-07 17:43 | Emergency (ER) | payer OTHER ==
[~2018-01-07] VITALS: Ht 175.3 cm; Wt 62.6 kg
[~2018-01-07 17:43] MED LIST changes: +BETHANECHOL CHL10 MG PO; +CEFTIN500 MG PO
[2018-01-07 18:34] LABS: HEMATOCRIT 38.7 % (38.0-50.0); HEMOGLOBIN 13.2 G/DL (12.5-16.6); MCH 34.9 PG (29.0-34.0); MCHC 34.1 G/DL (30.0-36.0); MCV 102.4 FL (86-99); PLATELET COUNT 105 K/uL (156-360); RBC DIS.WIDTH-CV 13.3 % (11.8-14.6); RBC DIS.WIDTH-SD 50.4 % (39-53); RED BLOOD COUNT 3.78 M/uL (4.00-5.50); WHITE BLOOD COUNT 2.6 K/uL (4.1-10.2)
[2018-01-07 18:46] LABS: CHLORIDE 106 mEq/L (99-109); SODIUM 140 mEq/L (136-147)
[2018-01-07 18:49] LABS: GLUCOSE 91 mg/dL (70-99); TOTAL PROTEIN 7.6 g/dL (6.4-8.3)
[2018-01-07 18:51] LABS: TOTAL BILIRUBIN 0.7 mg/dL (0.0-1.0)
[2018-01-07 18:52] LABS: ALKALINE PHOSPHATASE 105 IU/L (3-129); CREATININE 1.4 mg/dL (0.6-1.3); GFR ESTIMATE (CALCULATED) > 59 mL/min/ (58.99-99999)
[2018-01-07 18:53] LABS: UREA NITROGEN (BUN) 18 mg/dL (9-23)
[2018-01-07 18:54] LABS: AST (GOT) 19 IU/L (2-34)
[2018-01-07 18:55] LABS: ALT (GPT) 14 IU/L (3-49)
[2018-01-07 18:56] LABS: LIPASE 25 U/L (1.0-51.0)
[2018-01-07] MEDS ORDERED: MYLICON,MYLANTA80 MG PO (19:27)
[2018-01-07] MEDS ORDERED: COLACE100 MG PO (19:27)
[2018-01-07 19:48] VITALS: BP 181/134
== END 2018-01-07 19:48 | disposition home or self-care (01) ==
LOC: EME 17:43
PROVIDERS: Nurse Practitioner Family
DX: I10 Essential (primary) hypertension (principal); K59.00 Constipation, unspecified; I70.90 Unspecified atherosclerosis; J45.909 Unspecified asthma, uncomplicated; E05.90 Thyrotoxicosis, unspecified without thyrotoxic crisis or storm; F32.9 Major depressive disorder, single episode, unspecified; Z87.891 Personal history of nicotine dependence; Z87.442 Personal history of urinary calculi; Z98.890 Other specified postprocedural states; Z92.3 Personal history of irradiation; Z85.118 Personal history of other malignant neoplasm of bronchus and lung; Z85.46 Personal history of malignant neoplasm of prostate; Z91.012 Allergy to eggs
CPT/HCPCS: 74018; 80053; 83690; 85027; 99281; 99285

== ENCOUNTER 2018-02-21 02:58 | Emergency (ER) | payer OTHER ==
[~2018-02-21] VITALS: Ht 175.3 cm; Wt 60.8 kg
[2018-02-21 03:53] LABS: APPEARANCE SL.HAZY ((CLEAR)); BILIRUBIN NEGATIVE; BLOOD LARGE; COLOR YELLOW ((YELLOW)); GLUCOSE (STRIP) NEGATIVE; KETONES NEGATIVE; LEUKOCYTES SMALL; NITRITE NEGATIVE; PROTEIN (STRIP) 30; SPECIFIC GRAVITY 1.009 (1.000-1.030); UROBILINOGEN 0.2 MG/DL (0.2-1.0)
[2018-02-21 04:08] LABS: BACTERIA 3+ /HPF; EPITHELIAL CELLS RARE /HPF; MUCUS NONE SEEN /LPF; RED BLOOD CELLS TNTC /HPF (0-5); UCUL ADDED? YES; WHITE BLOOD CELLS 0-5 /HPF (0-5)
[2018-02-21 04:29] LABS: HEMATOCRIT 38.2 % (38.0-50.0); HEMOGLOBIN 13.1 G/DL (12.5-16.6); MCH 34.4 PG (29.0-34.0); MCHC 34.3 G/DL (30.0-36.0); MCV 100.3 FL (86-99); PLATELET COUNT 97 K/uL (156-360); RBC DIS.WIDTH-CV 12.8 % (11.8-14.6); RBC DIS.WIDTH-SD 47.6 % (39-53); RED BLOOD COUNT 3.81 M/uL (4.00-5.50); WHITE BLOOD COUNT 3.6 K/uL (4.1-10.2)
[2018-02-21 04:37] LABS: ALBUMIN 4.1 g/dL (3.2-4.8); CHLORIDE 104 mEq/L (99-109); SODIUM 139 mEq/L (136-147)
[2018-02-21 04:40] LABS: GLUCOSE 156 mg/dL (70-99); TOTAL PROTEIN 7.5 g/dL (6.4-8.3)
[2018-02-21 04:42] LABS: TOTAL BILIRUBIN 0.6 mg/dL (0.0-1.0)
[2018-02-21 04:43] LABS: ALKALINE PHOSPHATASE 103 IU/L (3-129); CREATININE 1.3 mg/dL (0.6-1.3); GFR ESTIMATE (CALCULATED) > 59 mL/min/ (58.99-99999)
[2018-02-21 04:44] LABS: UREA NITROGEN (BUN) 21 mg/dL (9-23)
[2018-02-21 04:45] LABS: AST (GOT) 21 IU/L (2-34)
[2018-02-21 04:46] LABS: ALT (GPT) 16 IU/L (3-49)
[2018-02-21 04:55] LABS: POTASSIUM 3.1 mEq/L (3.7-5.4)
[2018-02-21] MEDS ORDERED: PERCOCET 5/31 TABLET PO (05:24)
[2018-02-21] MEDS ORDERED: CIPRO500 MG PO (07:25)
[2018-02-21 07:42] VITALS: BP 167/135
== END 2018-02-21 07:43 | disposition home or self-care (01) ==
LOC: EME 02:58
PROVIDERS: Physician Assistant
DX: R33.9 Retention of urine, unspecified (principal); R10.30 Lower abdominal pain, unspecified; I10 Essential (primary) hypertension; Z85.46 Personal history of malignant neoplasm of prostate; Z85.118 Personal history of other malignant neoplasm of bronchus and lung; Z92.21 Personal history of antineoplastic chemotherapy; E05.90 Thyrotoxicosis, unspecified without thyrotoxic crisis or storm; F17.200 Nicotine dependence, unspecified, uncomplicated; F32.9 Major depressive disorder, single episode, unspecified; Z87.442 Personal history of urinary calculi
CPT/HCPCS: 74176; 80053; 81003; 83605; 85027; 87040; 87077; 87086; 99281; 99284; J0360; J7030

== ENCOUNTER 2018-03-28 00:51 | Emergency (ER) | payer OTHER ==
[~2018-03-28] VITALS: Ht 175.3 cm; Wt 61.1 kg
[2018-03-28 01:34] LABS: HEMATOCRIT 39.6 % (38.0-50.0); HEMOGLOBIN 13.4 G/DL (12.5-16.6); MCH 34.5 PG (29.0-34.0); MCHC 33.8 G/DL (30.0-36.0); MCV 102.1 FL (86-99); PLATELET COUNT 113 K/uL (156-360); RBC DIS.WIDTH-CV 13.2 % (11.8-14.6); RBC DIS.WIDTH-SD 49.6 % (39-53); RED BLOOD COUNT 3.88 M/uL (4.00-5.50); WHITE BLOOD COUNT 4.3 K/uL (4.1-10.2)
[2018-03-28 01:48] LABS: ALBUMIN 4.4 g/dL (3.2-4.8); CHLORIDE 107 mEq/L (99-109); POTASSIUM 3.3 mEq/L (3.7-5.4); SODIUM 143 mEq/L (136-147)
[2018-03-28 01:50] LABS: GLUCOSE 157 mg/dL (70-99); TOTAL PROTEIN 8.3 g/dL (6.4-8.3)
[2018-03-28 01:52] LABS: TOTAL BILIRUBIN 0.4 mg/dL (0.0-1.0)
[2018-03-28 01:54] LABS: ALKALINE PHOSPHATASE 117 IU/L (3-129); CREATININE 1.3 mg/dL (0.6-1.3); GFR ESTIMATE (CALCULATED) > 59 mL/min/ (58.99-99999)
[2018-03-28 01:55] LABS: UREA NITROGEN (BUN) 25 mg/dL (9-23)
[2018-03-28 01:56] LABS: AST (GOT) 19 IU/L (2-34)
[2018-03-28 01:57] LABS: ALT (GPT) 15 IU/L (3-49)
[2018-03-28 01:58] LABS: TROP-I INTERPRETATION NEGATIVE; TROPONIN-I < 0.01 ng/mL (0.0-0.30)
[2018-03-28 03:40] LABS: APPEARANCE SL.HAZY ((CLEAR)); BILIRUBIN NEGATIVE; BLOOD LARGE; COLOR YELLOW ((YELLOW)); GLUCOSE (STRIP) NEGATIVE; KETONES NEGATIVE; LEUKOCYTES MODERATE; NITRITE NEGATIVE; PROTEIN (STRIP) 100; SPECIFIC GRAVITY 1.014 (1.000-1.030); UROBILINOGEN 0.2 MG/DL (0.2-1.0)
[2018-03-28 03:55] LABS: EPITHELIAL CELLS RARE /HPF; RED BLOOD CELLS TNTC /HPF (0-5)
[2018-03-28 03:56] LABS: MUCUS 3+ /LPF; WHITE BLOOD CELLS 20-30 /HPF (0-5)
[2018-03-28 03:57] LABS: BACTERIA 1+ /HPF
[2018-03-28 03:58] LABS: HYALINE CASTS 0-5 /LPF
[2018-03-28] MEDS ORDERED: BACTRIM,SEPT1 TABLET PO (04:23)
[2018-03-28] MEDS ORDERED: PYRIDIUM200 MG PO (05:19)
[2018-03-28 09:37] VITALS: BP 167/127
== END 2018-03-28 07:25 | disposition home or self-care (01) ==
LOC: EME → EDBD 00:51 → EME 00:51
PROVIDERS: Emergency Medicine
DX: N39.0 Urinary tract infection, site not specified (principal); I10 Essential (primary) hypertension; F32.9 Major depressive disorder, single episode, unspecified; F17.200 Nicotine dependence, unspecified, uncomplicated; Z85.46 Personal history of malignant neoplasm of prostate; Z87.442 Personal history of urinary calculi; Z92.3 Personal history of irradiation; Z90.2 Acquired absence of lung [part of]; Z91.012 Allergy to eggs
CPT/HCPCS: 80053; 81003; 83605; 84484; 85027; 87086; 93005; 99281; 99285; J0360; J1170; J3010; J7030; J7050

== ENCOUNTER 2018-04-25 08:23 | Emergency (ER) | payer OTHER ==
[~2018-04-25] VITALS: Ht 175.3 cm; Wt 63.0 kg
[~2018-04-25 08:23] MED LIST changes: +PYRIDIUM200 MG PO
[2018-04-25 09:12] LABS: HEMATOCRIT 41.1 % (38.0-50.0); HEMOGLOBIN 14.1 G/DL (12.5-16.6); MCH 35.3 PG (29.0-34.0); MCHC 34.3 G/DL (30.0-36.0); MCV 102.8 FL (86-99); NRBC (%) 0.5 /100 WBC (0-0); PLATELET COUNT 122 K/uL (156-360); RBC DIS.WIDTH-CV 13.7 % (11.8-14.6); RBC DIS.WIDTH-SD 51.9 % (39-53); WHITE BLOOD COUNT 3.7 K/uL (4.1-10.2)
[2018-04-25 09:21] LABS: APPEARANCE CLEAR ((CLEAR)); BILIRUBIN NEGATIVE; BLOOD MODERATE; COLOR STRAW ((YELLOW)); GLUCOSE (STRIP) NEGATIVE; KETONES NEGATIVE; LEUKOCYTES MODERATE; NITRITE NEGATIVE; PROTEIN (STRIP) 100; SPECIFIC GRAVITY 1.009 (1.000-1.030); UROBILINOGEN 0.2 MG/DL (0.2-1.0)
[2018-04-25 09:23] LABS: CHLORIDE 104 mEq/L (99-109); POTASSIUM 3.4 mEq/L (3.7-5.4)
[2018-04-25 09:24] LABS: SODIUM 139 mEq/L (136-147)
[2018-04-25 09:25] LABS: GLUCOSE 193 mg/dL (70-99)
[2018-04-25 09:29] LABS: CREATININE 1.5 mg/dL (0.6-1.3); GFR ESTIMATE (CALCULATED) > 59 mL/min/ (58.99-99999)
[2018-04-25 09:30] LABS: UREA NITROGEN (BUN) 20 mg/dL (9-23)
[2018-04-25 09:37] LABS: BACTERIA NONE SEEN /HPF; EPITHELIAL CELLS NONE SEEN /HPF; MUCUS TRACE /LPF; RED BLOOD CELLS TNTC /HPF (0-5); UCUL ADDED? YES; WHITE BLOOD CELLS TNTC /HPF (0-5)
[2018-04-25] MEDS ORDERED: CIPRO500 MG PO (12:04)
[2018-04-25] MEDS ORDERED: NORCO 5/3251 TABLET PO (12:04)
[2018-04-25 13:21] VITALS: BP 141/111
== END 2018-04-25 13:30 | disposition home or self-care (01) ==
LOC: EME 08:23
PROVIDERS: Nurse Practitioner Family
DX: N39.0 Urinary tract infection, site not specified (principal); I10 Essential (primary) hypertension; Z85.46 Personal history of malignant neoplasm of prostate; E05.90 Thyrotoxicosis, unspecified without thyrotoxic crisis or storm; F32.9 Major depressive disorder, single episode, unspecified; Z87.440 Personal history of urinary (tract) infections; Z87.442 Personal history of urinary calculi; Z87.891 Personal history of nicotine dependence; Z85.118 Personal history of other malignant neoplasm of bronchus and lung
CPT/HCPCS: 80048; 81003; 83605; 85027; 87040; 87086; 87801; 99281; 99285; J0696

== ENCOUNTER 2018-04-27 10:25 | Inpatient (IN) | payer OTHER ==
[2018-04-27] VITALS (9 sets, daily range): BP systolic 97–158; BP diastolic 71–122
[~2018-04-27] VITALS: Ht 175.3 cm; Wt 65.9 kg
[2018-04-27 11:23] LABS: HEMOGLOBIN 12.7 G/DL (12.5-16.6); MCH 34.9 PG (29.0-34.0); MCHC 33.4 G/DL (30.0-36.0); MCV 104.4 FL (86-99); PLATELET COUNT 94 K/uL (156-360); RBC DIS.WIDTH-CV 14.2 % (11.8-14.6); RBC DIS.WIDTH-SD 54.6 % (39-53); RED BLOOD COUNT 3.64 M/uL (4.00-5.50); WHITE BLOOD COUNT 2.7 K/uL (4.1-10.2)
[2018-04-27 11:35] LABS: CHLORIDE 102 mEq/L (99-109); POTASSIUM 3.8 mEq/L (3.7-5.4); SODIUM 138 mEq/L (136-147)
[2018-04-27 11:41] LABS: CREATININE 1.8 mg/dL (0.6-1.3); GFR ESTIMATE (CALCULATED) 49 mL/min/ (58.99-99999)
[2018-04-27 11:42] LABS: UREA NITROGEN (BUN) 25 mg/dL (9-23)
[2018-04-27 11:46] LABS: GLUCOSE 106 mg/dL (70-99); INTER. NORMALIZED RATIO 1.2
[2018-04-27 11:48] LABS: PTT 36.3 SEC (25-37)
[2018-04-28] VITALS (21 sets, daily range): BP systolic 98–173; BP diastolic 71–126
[2018-04-28 07:15] LABS: ALBUMIN 3.6 G/DL (3.2-4.8); ALKALINE PHOSPHATASE 60 IU/L (3-129); ALT (GPT) 10 IU/L (3-49); AST (GOT) 18 IU/L (2-34); CHLORIDE 104 MEQ/L (99-109); CREATININE 1.4 MG/DL (0.6-1.3); GFR ESTIMATE (CALCULATED) > 59 mL/min/ (58.99-99999); GLUCOSE 124 mg/dL (70-99); POTASSIUM 3.4 MEQ/L (3.7-5.4); SODIUM 135 MEQ/L (136-147); TOTAL BILIRUBIN 0.6 MG/DL (0.0-1.0); TOTAL PROTEIN 5.8 G/DL (6.4-8.3); UREA NITROGEN (BUN) 17 mg/dL (9-23)
[2018-04-28 09:09] LABS: MAGNESIUM 1.8 mg/dl (1.3-2.7)
[2018-04-29] VITALS: BP 124/97
[2018-04-29 06:52] VITALS: BP 124/97; BP 157/104
[2018-04-29 07:41] LABS: HEMATOCRIT 32.1 % (38.0-50.0); MCH 34.2 PG (29.0-34.0); MCV 103.5 FL (86-99); PLATELET COUNT 96 K/uL (156-360); RBC DIS.WIDTH-CV 14.2 % (11.8-14.6); RBC DIS.WIDTH-SD 53.8 % (39-53)
[2018-04-29 07:42] LABS: HEMOGLOBIN 10.6 G/DL (12.5-16.6); WHITE BLOOD COUNT 1.9 K/uL (4.1-10.2)
[2018-04-29 08:02] LABS: CHLORIDE 109 MEQ/L (99-109); CREATININE 1.2 MG/DL (0.6-1.3); GFR ESTIMATE (CALCULATED) > 59 mL/min/ (58.99-99999); GLUCOSE 119 mg/dL (70-99); POTASSIUM 3.6 MEQ/L (3.7-5.4); SODIUM 138 MEQ/L (136-147); UREA NITROGEN (BUN) 11 mg/dL (9-23)
[2018-04-29 08:30] VITALS: BP 163/95
[2018-04-29 12:32] VITALS: BP 150/98
[2018-04-29 20:13] VITALS: BP 122/91
[2018-04-30] VITALS (8 sets, daily range): BP systolic 98–182; BP diastolic 80–116
[2018-04-30 08:27] LABS: HEMATOCRIT 34.6 % (38.0-50.0); HEMOGLOBIN 11.5 G/DL (12.5-16.6); MCHC 33.2 G/DL (30.0-36.0); MCV 102.4 FL (86-99); PLATELET COUNT 95 K/uL (156-360); RBC DIS.WIDTH-SD 52.9 % (39-53); RED BLOOD COUNT 3.38 M/uL (4.00-5.50); WHITE BLOOD COUNT 2.1 K/uL (4.1-10.2)
[2018-04-30 08:51] LABS: CHLORIDE 106 MEQ/L (99-109); CREATININE 1.2 MG/DL (0.6-1.3); GFR ESTIMATE (CALCULATED) > 59 mL/min/ (58.99-99999); GLUCOSE 100 mg/dL (70-99); POTASSIUM 3.8 MEQ/L (3.7-5.4); SODIUM 138 MEQ/L (136-147); UREA NITROGEN (BUN) 10 mg/dL (9-23)
[2018-05-01 04:00] VITALS: BP 130/98
[2018-05-01 07:57] VITALS: BP 140/100
[2018-05-01 11:26] VITALS: BP 124/76
[2018-05-01 15:50] VITALS: BP 102/78
[2018-05-01 20:27] VITALS: BP 130/76
[2018-05-02 00:45] VITALS: BP 128/92
[2018-05-02 04:00] VITALS: BP 160/110
[2018-05-02 06:22] LABS: HEMATOCRIT 35.3 % (38.0-50.0); HEMOGLOBIN 11.9 G/DL (12.5-16.6); MCH 33.8 PG (29.0-34.0); MCHC 33.7 G/DL (30.0-36.0); MCV 100.3 FL (86-99); PLATELET COUNT 104 K/uL (156-360); RBC DIS.WIDTH-CV 13.7 % (11.8-14.6); RBC DIS.WIDTH-SD 50.5 % (39-53); RED BLOOD COUNT 3.52 M/uL (4.00-5.50); WHITE BLOOD COUNT 2.9 K/uL (4.1-10.2)
[2018-05-02 06:45] LABS: CHLORIDE 104 MEQ/L (99-109); CREATININE 1.2 MG/DL (0.6-1.3); GFR ESTIMATE (CALCULATED) > 59 mL/min/ (58.99-99999); GLUCOSE 95 mg/dL (70-99); POTASSIUM 3.7 MEQ/L (3.7-5.4); SODIUM 141 MEQ/L (136-147); UREA NITROGEN (BUN) 18 mg/dL (9-23)
[2018-05-02 07:02] VITALS: BP 118/82
[2018-05-02 11:07] VITALS: BP 131/85
[2018-05-02] MEDS ORDERED: AMLODIPINE BESY10 MG PO (15:22)
[2018-05-02 15:29] VITALS: BP 104/67
== END 2018-05-02 16:40 | DRG 65 ==
LOC: EME 10:25 → EDOF 13:03 → 5SOUTH 13:03 → 4WEST 13:03 → ENRESERV 13:07 → 4WEST 14:56 → ENRESERV 04-29 05:21 → 5SOUTH 04-29 08:23
PROVIDERS: Family Medicine; Internal Medicine; Physician Assistant Medical; Specialist
DX: I61.0 Nontraumatic intracerebral hemorrhage in hemisphere, subcortical (principal); N39.0 Urinary tract infection, site not specified; R47.81 Slurred speech; R29.810 Facial weakness; I10 Essential (primary) hypertension; D72.818 Other decreased white blood cell count; I65.29 Occlusion and stenosis of unspecified carotid artery; E89.0 Postprocedural hypothyroidism; F32.9 Major depressive disorder, single episode, unspecified; F17.210 Nicotine dependence, cigarettes, uncomplicated; Z85.46 Personal history of malignant neoplasm of prostate; Z85.118 Personal history of other malignant neoplasm of bronchus and lung; Z90.2 Acquired absence of lung [part of]; Z91.14 Patient's other noncompliance with medication regimen
CPT/HCPCS: 70450; 71046; 80048; 80053; 80202; 83735; 85027; 85610; 85730; 87040; 87641; 92610 GN; 93005; 93306; 93880; 97530 GO; 99281; 99285; J0360; J0744; J3370; S0028

== ENCOUNTER 2018-05-02 14:29 | Inpatient (IN) | payer OTHER ==
[~2018-05-02] VITALS: Ht 167.6 cm; Wt 100.2 kg
[2018-05-02] MEDS ORDERED: AMLODIPINE BESY10 MG PO (15:22)
[2018-05-02 18:00] VITALS: BP 129/96
[2018-05-02 23:53] VITALS: BP 94/65
[2018-05-03 05:57] VITALS: BP 120/80
[2018-05-03 06:45] LABS: HEMATOCRIT 33.1 % (38.0-50.0); HEMOGLOBIN 10.8 G/DL (12.5-16.6); MCH 33.6 PG (29.0-34.0); MCHC 32.6 G/DL (30.0-36.0); MCV 103.1 FL (86-99); PLATELET COUNT 106 K/uL (156-360); RBC DIS.WIDTH-CV 14.1 % (11.8-14.6); RBC DIS.WIDTH-SD 53.7 % (39-53); RED BLOOD COUNT 3.21 M/uL (4.00-5.50); WHITE BLOOD COUNT 2.5 K/uL (4.1-10.2)
[2018-05-03 07:18] LABS: ALBUMIN 3.7 G/DL (3.2-4.8); ALKALINE PHOSPHATASE 69 IU/L (3-129); ALT (GPT) 9 IU/L (3-49); AST (GOT) 12 IU/L (2-34); CHLORIDE 106 MEQ/L (99-109); CREATININE 1.5 MG/DL (0.6-1.3); GFR ESTIMATE (CALCULATED) > 59 mL/min/ (58.99-99999); GLUCOSE 103 mg/dL (70-99); POTASSIUM 3.8 MEQ/L (3.7-5.4); SODIUM 140 MEQ/L (136-147); TOTAL BILIRUBIN 0.3 MG/DL (0.0-1.0); TOTAL PROTEIN 6.1 G/DL (6.4-8.3); UREA NITROGEN (BUN) 32 mg/dL (9-23)
[2018-05-03 16:02] VITALS: BP 102/73
[2018-05-04 05:05] VITALS: BP 145/95
[2018-05-04 05:19] LABS: APPEARANCE CLEAR ((CLEAR)); BILIRUBIN NEGATIVE; BLOOD SMALL; COLOR YELLOW ((YELLOW)); GLUCOSE (STRIP) NEGATIVE; KETONES NEGATIVE; LEUKOCYTES TRACE; NITRITE NEGATIVE; PROTEIN (STRIP) NEGATIVE; SPECIFIC GRAVITY 1.023 (1.000-1.030); UROBILINOGEN 0.2 MG/DL (0.2-1.0)
[2018-05-04 05:26] LABS: BACTERIA NONE SEEN /HPF; EPITHELIAL CELLS RARE /HPF; MUCUS TRACE /LPF; RED BLOOD CELLS 0-5 /HPF (0-5); UCUL ADDED? YES
[2018-05-04 15:37] VITALS: BP 108/78
[2018-05-05 05:26] VITALS: BP 124/78
[2018-05-05 07:27] LABS: CHLORIDE 107 MEQ/L (99-109); CREATININE 1.2 MG/DL (0.6-1.3); GFR ESTIMATE (CALCULATED) > 59 mL/min/ (58.99-99999); GLUCOSE 98 mg/dL (70-99); POTASSIUM 3.9 MEQ/L (3.7-5.4); SODIUM 141 MEQ/L (136-147); UREA NITROGEN (BUN) 35 mg/dL (9-23)
[2018-05-05 07:38] LABS: HEMOGLOBIN 10.8 G/DL (12.5-16.6); MCH 33.1 PG (29.0-34.0); MCHC 31.8 G/DL (30.0-36.0); MCV 104.3 FL (86-99); PLATELET COUNT 107 K/uL (156-360); RBC DIS.WIDTH-SD 54.2 % (39-53); RED BLOOD COUNT 3.26 M/uL (4.00-5.50); WHITE BLOOD COUNT 2.5 K/uL (4.1-10.2)
[2018-05-05 15:06] VITALS: BP 129/98
[2018-05-06 05:39] VITALS: BP 121/88
[2018-05-06 15:31] VITALS: BP 126/93
[2018-05-07 03:45] VITALS: BP 129/95
[2018-05-07 15:05] VITALS: BP 137/96
[2018-05-07 15:41] VITALS: BP 130/90
[2018-05-08 05:09] VITALS: BP 124/84
[2018-05-08 15:55] VITALS: BP 105/77
[2018-05-09 05:56] VITALS: BP 146/98
[2018-05-09 16:05] VITALS: BP 134/93
[2018-05-10 06:04] VITALS: BP 160/100
[2018-05-10 09:02] VITALS: BP 147/92
[2018-05-10 16:17] VITALS: BP 109/81
[2018-05-11 05:35] VITALS: BP 143/89
[2018-05-11 13:57] VITALS: BP 176/88
[2018-05-11 15:11] VITALS: BP 1098/76
[2018-05-12 07:08] VITALS: BP 131/93
[2018-05-12 07:53] LABS: BASOPHIL (%) 0.4 % (0-1); EOSINOPHIL (%) 3.9 % (0-5); EOSINOPHIL COUNT 0.1 K/uL (0-0.3); HEMATOCRIT 32.4 % (38.0-50.0); IMMATURE GRANULOCYTE (%) 0.4 % (0.0-0.7); LYMPHOCYTE (%) 41.6 % (15-42); MCH 34.4 PG (29.0-34.0); MCV 101.3 FL (86-99); MONOCYTE (%) 20.8 % (3-12); MONOCYTE COUNT 0.5 K/uL (0-0.8); NEUTROPHIL (%) 32.9 % (45-76); NEUTROPHIL COUNT 0.8 K/uL (1.8-6.4); PLATELET COUNT 109 K/uL (156-360); RBC DIS.WIDTH-CV 13.4 % (11.8-14.6); RBC DIS.WIDTH-SD 50.1 % (39-53); WHITE BLOOD COUNT 2.3 K/uL (4.1-10.2)
[2018-05-12 08:30] LABS: ALBUMIN 3.9 G/DL (3.2-4.8); ALKALINE PHOSPHATASE 83 IU/L (3-129); ALT (GPT) 10 IU/L (3-49); AST (GOT) 14 IU/L (2-34); CHLORIDE 103 MEQ/L (99-109); CREATININE 1.1 MG/DL (0.6-1.3); GFR ESTIMATE (CALCULATED) > 59 mL/min/ (58.99-99999); GLUCOSE 95 mg/dL (70-99); POTASSIUM 3.9 MEQ/L (3.7-5.4); SODIUM 141 MEQ/L (136-147); TOTAL BILIRUBIN 0.5 MG/DL (0.0-1.0); TOTAL PROTEIN 6.7 G/DL (6.4-8.3); UREA NITROGEN (BUN) 30 mg/dL (9-23)
[2018-05-12 15:44] VITALS: BP 103/61
[2018-05-13 06:26] LABS: IRON 97 MCG/DL (35-150); TRANSFERRIN (TIBC) 188.1 mg/dL (215-380); TRANSFERRIN SATUR. 52 % (20-55)
[2018-05-13 07:12] VITALS: BP 134/94
[2018-05-13 07:50] LABS: THYROTROPIN (TSH) 0.61 MIU/L (0.4-5.5)
[2018-05-13 08:20] LABS: FOLIC ACID (FOLATE) > 22.0 NG/ML (5.0-22.0)
[2018-05-13 15:04] VITALS: BP 103/77
[2018-05-14 05:21] VITALS: BP 146/97
[2018-05-14 15:01] VITALS: BP 108/88
[2018-05-15 06:10] VITALS: BP 133/94
[2018-05-15 15:02] VITALS: BP 92/65
[2018-05-16 07:14] LABS: BASOPHIL (%) 0.4 % (0-1); EOSINOPHIL (%) 3.1 % (0-5); EOSINOPHIL COUNT 0.1 K/uL (0-0.3); HEMATOCRIT 32.3 % (38.0-50.0); HEMOGLOBIN 10.8 G/DL (12.5-16.6); IMMATURE GRANULOCYTE (%) 0.4 % (0.0-0.7); LYMPHOCYTE (%) 42.4 % (15-42); LYMPHOCYTE COUNT 1.1 K/uL (1.0-2.8); MCH 34.2 PG (29.0-34.0); MCHC 33.4 G/DL (30.0-36.0); MCV 102.2 FL (86-99); MONOCYTE (%) 20.2 % (3-12); MONOCYTE COUNT 0.5 K/uL (0-0.8); NEUTROPHIL (%) 33.5 % (45-76); NEUTROPHIL COUNT 0.9 K/uL (1.8-6.4); PLATELET COUNT 95 K/uL (156-360); RBC DIS.WIDTH-CV 13.5 % (11.8-14.6); RED BLOOD COUNT 3.16 M/uL (4.00-5.50); WHITE BLOOD COUNT 2.6 K/uL (4.1-10.2)
[2018-05-16 07:30] LABS: CHLORIDE 104 MEQ/L (99-109); CREATININE 1.1 MG/DL (0.6-1.3); GFR ESTIMATE (CALCULATED) > 59 mL/min/ (58.99-99999); GLUCOSE 95 mg/dL (70-99); POTASSIUM 3.9 MEQ/L (3.7-5.4); SODIUM 141 MEQ/L (136-147); UREA NITROGEN (BUN) 22 mg/dL (9-23)
[2018-05-16 15:45] VITALS: BP 125/88
[2018-05-16] MEDS ORDERED: AMLODIPINE BESYL5 MG PO (17:52)
[2018-05-16] MEDS ORDERED: FAMOTIDINE20 MG PO (17:52)
[2018-05-16] MEDS ORDERED: MODAFINIL100 MG PO (17:52)
[2018-05-16] MEDS ORDERED: METOPROLOL SUCC50 MG PO (17:52)
[2018-05-16] MEDS ORDERED: FLOMAX0.4 MG PO (17:52)
[2018-05-16] MEDS ORDERED: CITALOPRAM HBR10 MG PO (17:52)
[2018-05-16] MEDS ORDERED: BETHANECHOL CHL10 MG PO (17:52)
[2018-05-16] MEDS ORDERED: LEVO-T175 MCG PO (17:52)
[2018-05-16] MEDS ORDERED: LISINOPRIL10 MG PO (17:52)
[2018-05-16] MEDS ORDERED: VITAMIN D-32000 UNI2 PO (17:52)
[2018-05-17 05:05] VITALS: BP 132/89
== END 2018-05-17 14:15 | disposition home health service (06) | DRG 57 ==
LOC: 3WEST 14:29 → EDPENDDISDT 05-17 → 3WEST 05-17 14:15 → ENPENDDIS 05-18
PROVIDERS: Family Medicine Sports Medicine; Physical Medicine & Rehabilitation Pain Medicine; Psychiatry & Neurology Neurology
DX: I69.251 Hemiplegia and hemiparesis following other nontraumatic intracranial hemorrhage affecting right dominant side (principal); I69.222 Dysarthria following other nontraumatic intracranial hemorrhage; I69.292 Facial weakness following other nontraumatic intracranial hemorrhage; L03.039 Cellulitis of unspecified toe; L60.3 Nail dystrophy; R26.2 Difficulty in walking, not elsewhere classified; D61.818 Other pancytopenia; E87.1 Hypo-osmolality and hyponatremia; E87.6 Hypokalemia; E83.51 Hypocalcemia; I95.9 Hypotension, unspecified; R79.89 Other specified abnormal findings of blood chemistry; I10 Essential (primary) hypertension; E03.9 Hypothyroidism, unspecified; N30.90 Cystitis, unspecified without hematuria; I65.23 Occlusion and stenosis of bilateral carotid arteries; G62.9 Polyneuropathy, unspecified; I08.1 Rheumatic disorders of both mitral and tricuspid valves; J44.9 Chronic obstructive pulmonary disease, unspecified; N40.1 Benign prostatic hyperplasia with lower urinary tract symptoms; N39.498 Other specified urinary incontinence; R33.8 Other retention of urine; F32.9 Major depressive disorder, single episode, unspecified; Z60.2 Problems related to living alone; Z85.118 Personal history of other malignant neoplasm of bronchus and lung; Z85.46 Personal history of malignant neoplasm of prostate; Z87.891 Personal history of nicotine dependence; Z90.2 Acquired absence of lung [part of]
CPT/HCPCS: 71045; 80048; 80053; 81003; 82306; 82607; 82746; 83540; 84443; 84466; 85025; 85027; 87086; 92507 GN; 92523 GN; 92526 GN; 94799; 97110 GO; 97112 GO

== ENCOUNTER 2018-06-02 14:56 | Inpatient (IN) | payer OTHER ==
[~2018-06-02] VITALS: Ht 175.3 cm; Wt 66.0 kg
[~2018-06-02 14:56] MED LIST changes: +AMLODIPINE BESYL5 MG PO; +CITALOPRAM HBR10 MG PO; +LISINOPRIL10 MG PO; +METOPROLOL SUCC50 MG PO; +MODAFINIL100 MG PO; +VITAMIN D-32000 UNI2 PO
[2018-06-02 15:26] LABS: INTER. NORMALIZED RATIO 1.2
[2018-06-02 15:27] LABS: BASOPHIL (%) 0 % (0-1); EOSINOPHIL (%) 0.8 % (0-5); HEMATOCRIT 36.7 % (38.0-50.0); HEMOGLOBIN 12.8 G/DL (12.5-16.6); IMMATURE GRANULOCYTE (%) 0.3 % (0.0-0.7); LYMPHOCYTE (%) 15.9 % (15-42); LYMPHOCYTE COUNT 0.6 K/uL (1.0-2.8); MCH 34.7 PG (29.0-34.0); MCHC 34.9 G/DL (30.0-36.0); MCV 99.5 FL (86-99); MONOCYTE (%) 12.4 % (3-12); MONOCYTE COUNT 0.5 K/uL (0-0.8); NEUTROPHIL (%) 70.6 % (45-76); NEUTROPHIL COUNT 2.8 K/uL (1.8-6.4); PLATELET COUNT 102 K/uL (156-360); RBC DIS.WIDTH-CV 11.9 % (11.8-14.6); RBC DIS.WIDTH-SD 43.9 % (39-53); RED BLOOD COUNT 3.69 M/uL (4.00-5.50)
[2018-06-02 15:29] LABS: PTT 35.4 SEC (25-37)
[2018-06-02 15:31] LABS: ALBUMIN 4.1 g/dL (3.2-4.8); CHLORIDE 103 mEq/L (99-109); POTASSIUM 3.8 mEq/L (3.7-5.4); SODIUM 140 mEq/L (136-147)
[2018-06-02 15:33] LABS: GLUCOSE 133 mg/dL (70-99); TOTAL PROTEIN 7.6 g/dL (6.4-8.3)
[2018-06-02 15:35] LABS: TOTAL BILIRUBIN 0.8 mg/dL (0.0-1.0)
[2018-06-02 15:37] LABS: ALKALINE PHOSPHATASE 107 IU/L (3-129); CREATININE 1.3 mg/dL (0.6-1.3); GFR ESTIMATE (CALCULATED) > 59 mL/min/ (58.99-99999)
[2018-06-02 15:38] LABS: AST (GOT) 14 IU/L (2-34); UREA NITROGEN (BUN) 18 mg/dL (9-23)
[2018-06-02 15:39] LABS: DIRECT BILIRUBIN 0.3 mg/dL (0.0-0.3)
[2018-06-02 15:40] LABS: ALT (GPT) 10 IU/L (3-49)
[2018-06-02 15:42] LABS: TROP-I INTERPRETATION NEGATIVE; TROPONIN-I < 0.01 ng/mL (0.0-0.30)
[2018-06-02 18:00] LABS: APPEARANCE CLOUDY ((CLEAR)); BILIRUBIN NEGATIVE; BLOOD MODERATE; COLOR YELLOW ((YELLOW)); GLUCOSE (STRIP) NEGATIVE; KETONES NEGATIVE; LEUKOCYTES LARGE; NITRITE NEGATIVE; PROTEIN (STRIP) 100; SPECIFIC GRAVITY 1.038 (1.000-1.030); UROBILINOGEN 0.2 MG/DL (0.2-1.0)
[2018-06-02 18:06] LABS: BACTERIA 2+ /HPF; EPITHELIAL CELLS RARE /HPF; MUCUS NONE SEEN /LPF; RED BLOOD CELLS TNTC /HPF (0-5); UCUL ADDED? YES; WHITE BLOOD CELLS TNTC /HPF (0-5)
[2018-06-02] MEDS ORDERED: NORVASC5 MG PO (19:13)
[2018-06-02] MEDS ORDERED: LISINOPRIL10 MG PO (19:13)
[2018-06-02] MEDS ORDERED: PROVIGIL100 MG PO (19:14)
[2018-06-02] MEDS ORDERED: VENTOLIN HFA18 GM IH (19:14)
[2018-06-02] MEDS ORDERED: CELEXA10 MG PO (19:14)
[2018-06-02] MEDS ORDERED: VITAMIN D32000 UNI1 PO (19:15)
[2018-06-02] MEDS ORDERED: SYNTHROID175 MCG PO (19:16)
[2018-06-02 22:26] VITALS: BP 148/98
[2018-06-02 23:42] VITALS: BP 162/92
[2018-06-03 01:08] VITALS: BP 134/98
[2018-06-03 03:22] VITALS: BP 135/84
[2018-06-03 07:15] VITALS: BP 140/98
[2018-06-03 21:09] VITALS: BP 146/105
[2018-06-03 23:16] VITALS: BP 146/98
[2018-06-04 01:15] VITALS: BP 160/100
[2018-06-04 06:15] VITALS: BP 160/110
[2018-06-04 06:15] LABS: HEMATOCRIT 32.6 % (38.0-50.0); MCHC 33.7 G/DL (30.0-36.0); MCV 100.6 FL (86-99); PLATELET COUNT 85 K/uL (156-360); RBC DIS.WIDTH-CV 12.5 % (11.8-14.6); RBC DIS.WIDTH-SD 46.4 % (39-53); RED BLOOD COUNT 3.24 M/uL (4.00-5.50); WHITE BLOOD COUNT 5.8 K/uL (4.1-10.2)
[2018-06-04 06:39] LABS: ALBUMIN 3.4 G/DL (3.2-4.8); ALKALINE PHOSPHATASE 74 IU/L (3-129); ALT (GPT) 6 IU/L (3-49); AST (GOT) 11 IU/L (2-34); CHLORIDE 105 MEQ/L (99-109); CREATININE 1.2 MG/DL (0.6-1.3); GFR ESTIMATE (CALCULATED) > 59 mL/min/ (58.99-99999); GLUCOSE 123 mg/dL (70-99); POTASSIUM 3.7 MEQ/L (3.7-5.4); SODIUM 142 MEQ/L (136-147); TOTAL BILIRUBIN 0.6 MG/DL (0.0-1.0); TOTAL PROTEIN 6.3 G/DL (6.4-8.3); UREA NITROGEN (BUN) 21 mg/dL (9-23)
[2018-06-04 06:45] VITALS: BP 172/97
[2018-06-04 15:00] VITALS: BP 109/80
[2018-06-04 20:55] VITALS: BP 129/93
[2018-06-04 23:10] VITALS: BP 125/91
[2018-06-05 06:06] LABS: HEMATOCRIT 33.1 % (38.0-50.0); MCH 33.7 PG (29.0-34.0); MCHC 33.2 G/DL (30.0-36.0); MCV 101.5 FL (86-99); PLATELET COUNT 86 K/uL (156-360); RBC DIS.WIDTH-CV 12.4 % (11.8-14.6); RBC DIS.WIDTH-SD 46.6 % (39-53); RED BLOOD COUNT 3.26 M/uL (4.00-5.50); WHITE BLOOD COUNT 3.3 K/uL (4.1-10.2)
[2018-06-05 07:37] VITALS: BP 131/90
[2018-06-05] MEDS ORDERED: CEFTRIAXONE2 G1 IV (12:28)
== END 2018-06-05 14:12 | disposition home health service (06) | DRG 690 ==
LOC: EME 14:56 → ENRESERV 19:49 → EDOF 20:42 → 5EAST 20:42 → ENRESERV 06-05 12:41 → CANRESERV 06-05 12:41 → 5EAST 06-05 14:12
PROVIDERS: Emergency Medicine; Physician Assistant; Physician Assistant Medical
DX: N13.6 Pyonephrosis (principal); B96.20 Unspecified Escherichia coli [E. coli] as the cause of diseases classified elsewhere; D61.818 Other pancytopenia; I69.351 Hemiplegia and hemiparesis following cerebral infarction affecting right dominant side; I10 Essential (primary) hypertension; I08.1 Rheumatic disorders of both mitral and tricuspid valves; E89.0 Postprocedural hypothyroidism; J44.9 Chronic obstructive pulmonary disease, unspecified; F32.9 Major depressive disorder, single episode, unspecified; Z87.891 Personal history of nicotine dependence; Z85.46 Personal history of malignant neoplasm of prostate; Z85.118 Personal history of other malignant neoplasm of bronchus and lung; Z90.2 Acquired absence of lung [part of]; Z92.3 Personal history of irradiation
CPT/HCPCS: 71045; 71260; 74177; 80048; 80053; 80076; 81003; 83605; 84484; 85025; 85027; 85610; 85730; 87040; 87077; 87086 GA; 87186; 93005; 94640; 94799; 99281; 99285; J0360; J0692; J0696; J1644; J1885; J2270; J7030